=== PATIENT | female | born 1935 | race Caucasian/White ===

== ENCOUNTER 2017-06-05 05:45 | Inpatient (IN) | END 2017-06-07 19:30 | disposition home or self-care (01) | DRG 191 ==

== ENCOUNTER 2017-06-23 08:41 | Emergency (ER) | END 2017-06-23 13:57 | disposition home or self-care (01) ==

== ENCOUNTER 2019-02-18 22:06 | Inpatient (IN) | payer MEDICARE, OTHER ==
[~2019-02-18] VITALS: Ht 157.5 cm; Wt 53.2 kg
[~2019-02-18 22:06] MED LIST: ADV25050 INHALATION; ALBU2.5V3 NEB; ALBU8.5H8 INH; AMOX1TAB10 PO; ATOR10TA65 PO; BUSP10TA2 PO; MED4DP PO
[2019-02-19] MEDS ORDERED: SOD CHLORIDE 0.9% 500 ML IV STA (00:46)
[2019-02-19] MEDS ORDERED: METHYLPREDNISOLONE 125 MG INJ IV STA (00:46)
[2019-02-19] MEDS ORDERED: ALBUTEROL 0.5% (NEB) 2.5 MG/0.5 ML AMP INH STA (00:46)
[2019-02-19] MEDS ORDERED: ALBUTEROL/IPRATROPIUM (NEB) 3 ML AMP HHN PRN (04:30)
[2019-02-19] MEDS ORDERED: ONDANSETRON 4 MG INJ IV PRN (04:30)
[2019-02-19] MEDS ORDERED: ACETAMINOPHEN 325 MG TAB PO PRN (04:30)
[2019-02-19] MEDS ORDERED: NACL 0.9% 3 ML SYG IV SCH (04:30)
[2019-02-19 06:13] VITALS: BP 123/89; PULSE 83; RESP 20
[2019-02-19 07:23] VITALS: Ht 157.5 cm; Wt 53.2 kg
[2019-02-19 07:34] VITALS: BP 144/65; PULSE 79; RESP 16
[2019-02-19] MEDS: BUSPIRONE 10 MG TAB PO SCH ×2 (09:05→20:10)
[2019-02-19] MEDS: METHYLPREDNISOLONE 125 MG INJ IV SCH (09:05)
[2019-02-19 11:15] VITALS: BP 140/64; PULSE 83; RESP 15
[2019-02-19] MEDS: ALBUTEROL/IPRATROPIUM (NEB) 3 ML AMP HHN SCH ×2 (13:53→20:14)
[2019-02-19 15:25] VITALS: BP 118/56; PULSE 81; RESP 15
[2019-02-19 19:31] VITALS: BP_SYST 58; PULSE 84; RESP 15
[2019-02-19] MEDS: ATORVASTATIN 10 MG TAB PO SCH (20:10)
[2019-02-19] MEDS: ARFORMOTEROL TARTRATE 15MCG/2 ML AMP NEB SCH (20:17)
[2019-02-20 00:28] VITALS: BP 119/56; PULSE 74; RESP 18
[2019-02-20 04:39] VITALS: BP 121/56; PULSE 68; RESP 18
[2019-02-20 07:25] VITALS: BP 135/63; PULSE 75; RESP 18
[2019-02-20] MEDS: ENOXAPARIN 40 MG/0.4 ML SYG SC SCH (08:50)
[2019-02-20] MEDS: BUSPIRONE 10 MG TAB PO SCH ×2 (08:50→21:27)
[2019-02-20] MEDS: METHYLPREDNISOLONE 125 MG INJ IV SCH (08:51)
[2019-02-20] MEDS: ALBUTEROL/IPRATROPIUM (NEB) 3 ML AMP HHN SCH ×3 (09:07→19:24)
[2019-02-20] MEDS: ARFORMOTEROL TARTRATE 15MCG/2 ML AMP NEB SCH ×2 (09:07→19:24)
[2019-02-20] MEDS ORDERED: POTASSIUM CHLORIDE (SR) 10 MEQ TAB PO ONE (10:30)
[2019-02-20 11:59] VITALS: BP 126/59; PULSE 80; RESP 19
[2019-02-20] MEDS ORDERED: AZITHROMYCIN 250 MG TAB PO SCH (12:00)
[2019-02-20] MEDS: METHYLPREDNISOLONE 40 MG INJ IV SCH ×2 (14:45→21:28)
[2019-02-20 15:52] VITALS: BP 123/57; PULSE 95; RESP 18
[2019-02-20 20:00] VITALS: BP 137/63; PULSE 82; RESP 18
[2019-02-20] MEDS: ATORVASTATIN 10 MG TAB PO SCH (21:26)
[2019-02-20] MEDS: FAMOTIDINE 20 MG TAB PO SCH (21:27)
[2019-02-20] MEDS ORDERED: PHENOL 1.4% SOLN 180 ML BTL MT PRN (22:30)
[2019-02-21 00:41] VITALS: BP 135/65; PULSE 66; RESP 18
[2019-02-21 04:22] VITALS: BP 133/60; PULSE 71
[2019-02-21] MEDS: METHYLPREDNISOLONE 40 MG INJ IV SCH ×3 (06:06→21:09)
[2019-02-21 07:41] VITALS: BP 125/65; PULSE 75; RESP 18
[2019-02-21] MEDS: ALBUTEROL/IPRATROPIUM (NEB) 3 ML AMP HHN SCH ×3 (08:49→19:44)
[2019-02-21] MEDS: ARFORMOTEROL TARTRATE 15MCG/2 ML AMP NEB SCH (08:49)
[2019-02-21] MEDS: AZITHROMYCIN 250 MG TAB PO SCH (08:54)
[2019-02-21] MEDS: BUSPIRONE 10 MG TAB PO SCH ×2 (08:54→21:09)
[2019-02-21] MEDS: FAMOTIDINE 20 MG TAB PO SCH ×2 (08:54→21:09)
[2019-02-21] MEDS: ENOXAPARIN 40 MG/0.4 ML SYG SC SCH (08:57)
[2019-02-21 11:57] VITALS: BP 123/58; PULSE 88; RESP 18
[2019-02-21 16:33] VITALS: BP 115/53; PULSE 78; RESP 18
[2019-02-21 19:58] VITALS: BP 132/62; PULSE 81; RESP 17
[2019-02-21] MEDS: ATORVASTATIN 10 MG TAB PO SCH (21:09)
[2019-02-22] VITALS (7 sets, daily range): BP systolic 120–146; BP diastolic 58–66; PULSE 72–97; RESP 17–20
[2019-02-22] MEDS: METHYLPREDNISOLONE 40 MG INJ IV SCH ×3 (06:09→22:51)
[2019-02-22] MEDS: AZITHROMYCIN 250 MG TAB PO SCH (08:45)
[2019-02-22] MEDS: FAMOTIDINE 20 MG TAB PO SCH ×2 (08:45→21:01)
[2019-02-22] MEDS: BUSPIRONE 10 MG TAB PO SCH ×2 (08:45→21:01)
[2019-02-22] MEDS: ARFORMOTEROL TARTRATE 15MCG/2 ML AMP NEB SCH ×2 (08:57→20:02)
[2019-02-22] MEDS: ALBUTEROL/IPRATROPIUM (NEB) 3 ML AMP HHN SCH ×3 (08:57→19:46)
[2019-02-22] MEDS: ENOXAPARIN 40 MG/0.4 ML SYG SC SCH (09:00)
[2019-02-22] MEDS: ATORVASTATIN 10 MG TAB PO SCH (21:01)
[2019-02-23] VITALS: BP 135/62; PULSE 68; RESP 20
[2019-02-23 04:00] VITALS: BP 132/63; PULSE 65; RESP 18
[2019-02-23] MEDS: METHYLPREDNISOLONE 40 MG INJ IV SCH (05:33)
[2019-02-23] MEDS: ALBUTEROL/IPRATROPIUM (NEB) 3 ML AMP HHN SCH ×2 (07:52→14:00)
[2019-02-23] MEDS: ARFORMOTEROL TARTRATE 15MCG/2 ML AMP NEB SCH (07:53)
[2019-02-23 08:41] VITALS: BP 146/62; PULSE 93; RESP 18
[2019-02-23] MEDS: BUSPIRONE 10 MG TAB PO SCH (08:48)
[2019-02-23] MEDS: FAMOTIDINE 20 MG TAB PO SCH (08:48)
[2019-02-23] MEDS: AZITHROMYCIN 250 MG TAB PO SCH (08:48)
[2019-02-23] MEDS: ENOXAPARIN 40 MG/0.4 ML SYG SC SCH (08:58)
[2019-02-23 13:09] VITALS: BP 152/63; PULSE 85; RESP 18
== END 2019-02-23 14:07 | disposition home or self-care (01) | DRG 190 ==
LOC: E/R 22:06 → TEL 02-19 02:23 → OBSVTOIN 02-21 13:54
PROVIDERS: ADMIT Internal Medicine; ATTEND Internal Medicine
DX: J44.1 Chronic obstructive pulmonary disease with (acute) exacerbation (principal); J96.01 Acute respiratory failure with hypoxia; J45.41 Moderate persistent asthma with (acute) exacerbation; E78.5 Hyperlipidemia, unspecified; Z87.891 Personal history of nicotine dependence; I27.20 Pulmonary hypertension, unspecified
CPT/HCPCS: 36415; 71045; 80048; 80053; 80061; 83036; 83690; 83735; 84100; 84484; 85025; 86301; 93005; 94640; 94644; 94664; 96374; G0378; J1650; J2920; J2930; J7040